=== PATIENT | female | born 1990 | race Caucasian/White ===

== ENCOUNTER 2017-08-04 18:45 | Emergency (ER) | payer OTHER ==
[2017-08-04 18:51] VITALS: BP 118/96; PULSE 125; BMI 29.9
[2017-08-04] MEDS ORDERED: IBUPROFEN 400 MG TABLET (FP) PO ONE (18:51)
--- NOTE | 2017-08-04 18:52 | PDOC ---
Rapid Medical Evaluation Time Seen by Provider: 08/04/17 18:48 Medical Evaluation: Allergies Allergy/AdvReac Type Severity Reaction Status Date / Time No Known Allergies Allergy Verified 08/04/17 18:48 08/04/17 18:48 I have performed a brief in-person evaluation of this patient. The patient presents with a chief complaint of: fever, abdominal pain, pelvic pain "cramping", vomited once today, body/headaches, last tylenol at 10 am Pertinent physical exam findings: temp 102.1F, tachy 125 I have ordered the following: labs, urine, Motrin The patient will proceed to the ED for further evaluation. Discharge Disposition - Diagnosis Abdominal pain - Referrals - Patient Instructions - Post Discharge Activity
[2017-08-04 19:14] LABS: BASO % 0.4 % (0-2.0); HEMATOCRIT 38.4 % (32.4-45.2); HEMOGLOBIN 12.8 GM/dL (10.7-15.3); LYMPH % 2.7 % (8-40); MCH 30.5 pg (25.7-33.7); MCHC 33.4 g/dl (32.0-36.0); MEAN CELL VOLUME 91.4 fl (80-96); MEAN PLT VOLUME 8.7 fl (7.5-11.1); NEUT % 91.9 % (42.8-82.8); PLATELET COUNT 159 K/MM3 (134-434); RDW 12.3 % (11.6-15.6); WHITE BLOOD COUNT 15.1 K/mm3 (4.0-10.0)
[2017-08-04 19:48] LABS: ALBUMIN 4.1 g/dl (3.4-5.0); ALK PHOS 73 U/L (45-117); ANION GAP 9 (8-16); BILIRUBIN,TOTAL 0.4 mg/dL (0.2-1.0); BLOOD UREA NITROGEN 11 mg/dL (7-18); CALCIUM 8.5 mg/dL (8.5-10.1); CHLORIDE 102 mmol/L (98-107); CO2 25 mmol/L (21-32); CREATININE 0.7 mg/dL (0.55-1.02); GLUCOSE,RANDOM 108 mg/dL (74-106); POTASSIUM 3.4 mmol/L (3.5-5.1); SGOT/AST 7 U/L (15-37); SGPT/ALT 21 U/L (12-78); SODIUM 136 mmol/L (136-145); TOT PROT 7.1 g/dl (6.4-8.2)
[2017-08-04 20:08] LABS: HCG,QUALITATIVE URINE NEGATIVE
[2017-08-04 20:09] LABS: URINE APPEARANCE CLEAR; URINE BILIRUBIN NEGATIVE (NEGATIVE); URINE BLOOD NEGATIVE (NEGATIVE); URINE COLOR LTYELLOW; URINE GLUCOSE (UA) NEGATIVE (NEGATIVE); URINE KETONE TRACE (NEGATIVE); URINE LEUK ESTERASE NEGATIVE (NEGATIVE); URINE NITRITE NEGATIVE (NEGATIVE); URINE PROTEIN NEGATIVE (NEGATIVE); URINE UROBILINOGEN NEGATIVE mg/dL (0.2-1.0)
[2017-08-04] MEDS ORDERED: PENICILLIN G BENZATHINE 1,200,000 UNIT/2 ML PFS IM ONE (20:51)
[2017-08-04] MEDS ORDERED: ACETAMINOPHEN 325 MG TABLET (FP) PO ONE (20:51)
[2017-08-04] MEDS ORDERED: PENICILLIN G BENZATHINE 2,400,000 UNIT/4 ML PFS ONE (20:53)
[2017-08-04] MEDS ORDERED: ACETAMINOPHEN 325 MG TABLET (FP) ONE ×2 (20:53→20:57)
--- NOTE | 2017-08-04 20:57 | PDOC ---
History of Present Illness - General Chief Complaint: Cold Symptoms Stated Complaint: COLD SYMPTOMS Time Seen by Provider: 08/04/17 18:48 Past History - Past Medical History Allergies/Adverse Reactions: Allergies Allergy/AdvReac Type Severity Reaction Status Date / Time No Known Allergies Allergy Verified 08/04/17 18:48 Home Medications: Ambulatory Orders No Home Medications 0 dose .ROUTE UTDICT 12/13/12 Ondansetron [Zofran Odt -] 4 mg SL TID #10 od.tablet 08/04/17 Oseltamivir Phosphate [Tamiflu] 75 mg PO BID #10 capsule 08/04/17 COPD: No - Immunization History Immunization Up to Date: Yes - Suicide/Smoking/Psychosocial Hx Smoking Status: No Smoking History: Never smoked Have you smoked in the past 12 months: No Number of Cigarettes Smoked Daily: 0 Information on smoking cessation initiated: No Hx Alcohol Use: No Drug/Substance Use Hx: No Substance Use Type: None *Physical Exam - Vital Signs Last Vital Signs Temp Pulse Resp BP Pulse Ox 102.1 F H 125 H 18 118/96 100 08/04/17 18:49 08/04/17 18:49 08/04/17 18:49 08/04/17 18:49 08/04/17 18:49 ED Treatment Course - LABORATORY CBC & Chemistry Diagram: 08/04/17 18:55 08/04/17 18:55 - ADDITIONAL ORDERS Additional order review: Laboratory Results 08/04/17 08/04/17 08/04/17 20:00 18:55 18:55 Sodium 136 Potassium 3.4 L Chloride 102 Carbon Dioxide 25 Anion Gap 9 BUN 11 Creatinine 0.7 Creat Clearance w eGFR > 60 Random Glucose 108 H Calcium 8.5 Total Bilirubin 0.4 AST 7 L ALT 21 Alkaline Phosphatase 73 Total Protein 7.1 Albumin 4.1 Lipase 64 L Urine Color Ltyellow Urine Appearance Clear Urine pH 7.0 Ur Specific [place] 1.021 Urine Protein Negative Urine Glucose (UA) Negative Urine Ketones Trace H Urine Blood Negative Urine Nitrite Negative Urine Bilirubin Negative Urine Urobilinogen Negative Ur Leukocyte Esterase Negative Urine HCG, Qual Negative 08/04/17 18:55 RBC 4.20 MCV 91.4 MCHC 33.4 RDW 12.3 MPV 8.7 Neutrophils % 91.9 H Lymphocytes % 2.7 L Monocytes % 5.0 Eosinophils % 0.0 Basophils % 0.4 - Medications Given in the ED: ED Medications Discontinued Medications Generic Name Dose Route Start Last Admin Trade Name Edwina PRN Reason Stop Dose Admin Ibuprofen 400 mg 08/04/17 18:51 08/04/17 18:52 Motrin - PO 08/04/17 18:52 400 mg ONCE ONE Administration *DC/Admit/Observation/Transfer Diagnosis at time of Disposition: Flu-like symptoms Pharyngitis Qualifiers: Pharyngitis/tonsillitis etiology: unspecified etiology Qualified Code(s): J02.9 - Acute pharyngitis, unspecified - Discharge Dispostion Disposition: HOME Condition at time of disposition: Stable Admit: No - Referrals Referrals: Mague Mueller [Primary Care Provider] - - Patient Instructions Printed Discharge Instructions: DI for Influenza -- Adult, DI for Pharyngitis/ Tonsillopharyngitis -- Adult Additional Instructions: You most likely have the flu and strep throat. You were treated with Bicillin today. 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 Please take Tylenol and Motrin as needed for fevers. Drink plenty of fluids. Your prescribed Zofran as needed for nausea. He may take this medication every 8 hours. Please all with her primary care doctor in 1 week. Return to the emergency department if you have worsening fevers, difficulty breathing, shortness of breath, or unable to tolerate fluids, or have any changes in her symptoms. - Post Discharge Activity Forms/Work/School Notes: Back to Work
[2017-08-04 21:00] VITALS: TEMP 98.6
== END 2017-08-04 21:04 | disposition home or self-care (01) ==
LOC: JERFT 18:45
DX: J11.2 Influenza due to unidentified influenza virus with gastrointestinal manifestations (principal); J02.9 Acute pharyngitis, unspecified
CPT/HCPCS: 36415; 80053; 81003; 83690; 84703; 85025; 87086; 96372; 99281-25

== ENCOUNTER 2020-02-05 17:04 | Inpatient (IN) | payer OTHER ==
[2020-02-05 18:28] VITALS: BMI 40.7
[2020-02-05] MEDS ORDERED: ELECTROLYTE-148 SOLN 500 ML IV ONE (18:40)
[2020-02-05] MEDS ORDERED: AMPICILLIN - 2 GM in SODIUM CHLORIDE 100 ML IVPB ONE (18:42)
[2020-02-05] MEDS ORDERED: DINOPROSTONE 10 MG VAGINAL SUPPOSITORY VG ONE (18:46)
--- NOTE | 2020-02-05 18:46 | HP ---
Past Medical History - Primary Care Physician PCP:: Joanna Carey - Admission History Source: Patient Limitations to Obtaining History: No Limitations - Past Medical History ...: 3 ...Para: 2 ...Term: 2 ...: 0 ...Spon : 0 ...Induced : 0 ...Living Children: 2 ...Multiple Gestation: 0 ...LMP: 05/02/19 ... Weeks Gestation by Dates: 39.6 ...EDC by Dates: 02/06/20 - Past Surgical History Past Surgical History: Yes: None Hx Myomectomy: No Hx Transabdominal Cerclage: No - Smoking History Smoking history: Never smoked Have you smoked in the past 12 months: No Aproximately how many cigarettes per day: 0 - Alcohol/Substance Use Hx Alcohol Use: No - Social History Usual Living Arrangement: Yes: With Spouse History of Recent Travel: No Home Medications - Allergies Allergies/Adverse Reactions: Allergies Allergy/AdvReac Type Severity Reaction Status Date / Time No Known Allergies Allergy Verified 02/05/20 18:16 - Home Medications Home Medications: Ambulatory Orders Vitamins (Sjr) - 1 tab PO DAILY 02/05/20 Review of Systems - Review of Systems Constitutional: reports: No Symptoms Eyes: reports: No Symptoms HENT: reports: No Symptoms Neck: reports: No Symptoms Cardiovascular: reports: No Symptoms Respiratory: reports: No Symptoms Gastrointestinal: reports: No Symptoms Genitourinary: reports: Vaginal Bleeding (bloody show) Breasts: reports: No Symptoms Reported Musculoskeletal: reports: No Symptoms Integumentary: reports: No Symptoms Neurological: reports: No Symptoms Endocrine: reports: No Symptoms Hematology/Lymphatic: reports: No Symptoms Psychiatric: reports: No Symptoms Physical Exam - Maternity Constitutional: Yes: Well Nourished, No Distress - Abdominal Exam/OB Number of Fetuses: Single Presentation: Vertex Contractions: Yes Regularity: Irregular Category: I - Vaginal Exam/OB Speculum Exam: No Dilatation (cm): 2 Effacement (%): long Amniotic Membrane Status: Intact Presentation: Vertex/Position Station: -1 - Physical Exam Musculoskeletal: Yes: WNL Extremities: Yes: WNL Psychiatric: Yes: WNL, Alert, Oriented Hemorrhage Risk Assessment - Risk Factors Risk Score: 0 Risk Level: Low Risk Problem List - Problems (1) 39 weeks gestation of Code(s): Z3A.39 - 39 WEEKS GESTATION OF (2) First stage of labor established Code(s): VVL4784 - Assessment/Plan IUP at 39.6 week early labor cat 1 cervdil placed Plan aubree cervidil
[2020-02-05 20:20] LABS: BASO % 0.2 % (0-2.0); EOS % 0.4 % (0-4.5); HEMATOCRIT 32.5 % (32.4-45.2); HEMOGLOBIN 10.8 GM/dL (10.7-15.3); LYMPH % 10.8 % (8-40); MCH 30.8 pg (25.7-33.7); MCHC 33.1 g/dl (32.0-36.0); MEAN CELL VOLUME 93.1 fl (80-96); MEAN PLT VOLUME 9.3 fl (7.5-11.1); MONO % 5.7 % (3.8-10.2); NEUT % 82.9 % (42.8-82.8); PLATELET COUNT 192 K/MM3 (134-434); RBC 3.49 M/mm3 (3.60-5.2); RDW 14.3 % (11.6-15.6); WHITE BLOOD COUNT 9.8 K/mm3 (4.0-10.0)
[2020-02-05] MEDS: ELECTROLYTE-148 SOLN 1,000 ML IV SCH (20:30)
[2020-02-05 20:33] LABS: BLOOD UREA NITROGEN 6.8 mg/dL (7-18); CALCIUM 8.6 mg/dL (8.5-10.1); CREATININE 0.6 mg/dL (0.55-1.3); POTASSIUM 3.9 mmol/L (3.5-5.1)
[2020-02-05 20:34] LABS: INR 0.97 (0.83-1.09); PROTHROMBIN TIME (PATIENT) 11.4 SEC (9.7-13.0)
[2020-02-05 20:37] LABS: ACTIVATED PTT 25.8 SECONDS (25.2-36.5)
[2020-02-06] MEDS: ELECTROLYTE-148 SOLN 1,000 ML IV SCH (04:17)
[2020-02-06] MEDS ORDERED: PROMETHAZINE HCL 25 MG/1 ML VIAL IVPB ONE (05:15)
[2020-02-06] MEDS ORDERED: BUTORPHANOL TARTRATE 2 MG/ML VIAL IVPB ONE (05:15)
[2020-02-06] MEDS ORDERED: AMPICILLIN SODIUM 2 GM VIAL ONE (05:20)
[2020-02-06] MEDS ORDERED: BUTORPHANOL TARTRATE 2 MG/ML VIAL ONE (05:21)
[2020-02-06] MEDS ORDERED: PROMETHAZINE HCL 25 MG/1 ML VIAL ONE (05:21)
[2020-02-06] MEDS ORDERED: OXYTOCIN 30 UNITS in 0.9% NS 30 UNIT/500 ML INFUS.BAG IVPB ONE (07:41)
[2020-02-06] MEDS ORDERED: AMPICILLIN SODIUM 1 GM VIAL ONE ×3 (07:41→17:55)
[2020-02-06] MEDS ORDERED: OXYTOCIN 20 UNITS in 0.9% NS 20 UNIT/1,000 ML INFUS.BAG IV ONE ×2 (07:41→14:39)
--- NOTE | 2020-02-06 10:22 | PN ---
Ante-Partal Exam - Subjective Vital Signs: Vital Signs Temperature 98.5 F 02/06/20 09:00 Pulse Rate 91 H 02/06/20 09:00 Respiratory Rate 18 02/06/20 09:00 Blood Pressure 127/72 02/06/20 09:00 O2 Sat by Pulse Oximetry (%) Bleeding: No Headache: No Visual changes: No Right upper quadrant pain: No - Contractions Contractions: Yes - Exam during Labor Variability: Moderate Category: I Monitor Decelerations: None Exam: Vaginal - Intrapartum Hemorrhage Risk Risk Score: 0 Risk Level: Low Risk - Assessment/Plan Assessment/Plan: post dates induction Cat 1 post cervidil Plan Pit aug
[2020-02-06] MEDS ORDERED: OXYTOCIN 30 UNITS in 0.9% NS 30 UNIT/500 ML INFUS.BAG IVPB SCH (10:30)
[2020-02-06] MEDS: AMPICILLIN - 1 GM in SODIUM CHLORIDE 100 ML IVPB SCH ×3 (10:45→18:10)
[2020-02-06] MEDS ORDERED: PCA PUMP NR ONE ×2 (12:09→20:53)
[2020-02-06] MEDS ORDERED: FENTANYL/BUPIVACAINE/NS/PF - PCEA - 50 ML DISP.SYRIN EP ONE ×2 (12:09→16:39)
--- NOTE | 2020-02-06 12:20 | PN ---
Ante-Partal Exam - Subjective Subjective: Pt doing well but with pain desires epidural Vital Signs: Vital Signs Temperature 98.4 F 02/06/20 11:00 Pulse Rate 89 02/06/20 11:00 Respiratory Rate 20 02/06/20 11:00 Blood Pressure 138/81 02/06/20 11:00 O2 Sat by Pulse Oximetry (%) Bleeding: No Headache: No Visual changes: No Right upper quadrant pain: No - Contractions Contractions: Yes Monitor Mode: External - Exam during Labor Variability: Moderate Monitor Decelerations: None Exam: Vaginal Dilatation (cm): 3 Effacement (%): 60 Amniotic Membrane Status: Ruptured Amniotic Fluid: Clear Presentation: Vertex Station: -3 - Intrapartum Hemorrhage Risk Risk Score: 0 Risk Level: Low Risk - Assessment/Plan Assessment/Plan: iup at 40 week srom cat 1 active labor plan epidural
[2020-02-06] MEDS ORDERED: BUPIVACAINE HCL/PF 0.25% (2.5MG/ML) 10 ML VIAL ONE (16:43)
[2020-02-06] MEDS ORDERED: NALOXONE HCL 0.4 MG/ML VIAL IVPUSH PRN (16:44)
[2020-02-06] MEDS ORDERED: FENTANYL/BUPIVACAINE/NS/PF - PCEA - 50 ML DISP.SYRIN EP SCH (16:45)
[2020-02-06] MEDS ORDERED: LIDO 2%/EPI 1:200000 PRESRVFRE (20 ML SDVIAL) ONE ×3 (19:07→22:17)
--- NOTE | 2020-02-06 21:21 | PN ---
Ante-Partal Exam - Subjective Subjective: Pt with anterior lip x 3 hours Vital Signs: Vital Signs Temperature 99.6 F 02/06/20 17:00 Pulse Rate 136 H 02/06/20 20:00 Respiratory Rate 20 02/06/20 20:00 Blood Pressure 158/64 02/06/20 20:00 O2 Sat by Pulse Oximetry (%) 127 H 02/06/20 19:15 Bleeding: No Headache: No Visual changes: No Right upper quadrant pain: No - Contractions Contractions: Yes Regularity: Regular Monitor Mode: External - Exam during Labor Variability: Moderate Category: I Monitor Accelerations: Present Monitor Decelerations: None Exam: Vaginal Dilatation (cm): 9 Effacement (%): 80 Amniotic Membrane Status: Ruptured Presentation: Vertex - Intrapartum Hemorrhage Risk Risk Score: 0 Risk Level: Low Risk - Assessment/Plan Assessment/Plan: Failure to progress Plan Section
[2020-02-06] MEDS ORDERED: ELECTROLYTE-148 SOLN 500 ML IV ONE ×2 (21:30→22:00)
[2020-02-06] MEDS ORDERED: CITRIC ACID/SODIUM CITRATE 30 ML UNIT-DOSE CUP PO ONE (21:30)
[2020-02-06] MEDS ORDERED: IBUPROFEN 800 MG/8 ML IJ IVPB PRN (21:33)
[2020-02-06] MEDS ORDERED: WITCH HAZEL 50% (TUCKS) 40 PAD/JAR PAD TP PRN (21:33)
[2020-02-06] MEDS ORDERED: BENZOCAINE 20% 57 GM BOTTLE TP PRN (21:33)
[2020-02-06] MEDS ORDERED: diphenhydrAMINE HCL 25 MG CAPSULE (FP) PO PRN (21:33)
[2020-02-06] MEDS ORDERED: BENZOCAINE 28 GM HEMORRHOIDAL OINTMENT PR PRN (21:33)
[2020-02-06] MEDS ORDERED: METHYLERGONOVINE MALEATE 0.2 MG/1 ML AMP IM PRN (21:33)
[2020-02-06] MEDS ORDERED: ceFAZolin SODIUM 1 GM VIAL ONE (22:14)
[2020-02-06] MEDS ORDERED: SODIUM BICARBONATE 8.4% 50 MEQ/50 ML VIAL ONE (22:18)
[2020-02-06] MEDS ORDERED: OXYTOCIN 10 UNITS/ML VIAL ONE (22:27)
[2020-02-06] MEDS ORDERED: morphine SULFATE/PF 0.5 MG/ML (2cc Syringe - QUVA) ONE ×3 (22:58)
[2020-02-06] MEDS: OXYTOCIN 20 UNITS in 0.9% NS 20 UNIT/1,000 ML INFUS.BAG IV SCH (23:30)
[2020-02-06 23:32] LABS: CORD pH 7.226 (7.14-7.44)
[2020-02-06 23:33] LABS: CORD BASE EXCESS -6.9 mmol/L (0-2); CORD HCO3 21.3 mmHg (20-29); CORD PCO2 52.6 mmHg (30-78)
[2020-02-06 23:33] LABS: CORD HCO3 21.9 mmHg (20-29); CORD PCO2 57.3 mmHg (30-78); CORD pH 7.201 (7.14-7.44)
[2020-02-07] MEDS: OXYTOCIN 20 UNITS in 0.9% NS 20 UNIT/1,000 ML INFUS.BAG IV SCH ×2 (05:12→22:36)
--- NOTE | 2020-02-07 07:01 | PN ---
Post Progress Note - Subjective Subjective: 29 yo Para 3 status post primary seen and evaluated. She's lying comfortably in bed. Post Day: 1 Type of Delivery: Primary C/S Vital Signs: Vital Signs Temperature 98.7 F 02/07/20 05:00 Pulse Rate 105 H 02/07/20 05:00 Respiratory Rate 18 02/07/20 06:00 Blood Pressure 134/63 02/07/20 05:00 O2 Sat by Pulse Oximetry (%) 97 02/06/20 23:50 Breast Exam: Yes: Soft Incision: Yes: Dressing dry and intact Abdomen/GI: Yes: Abdomen soft Lochia: Yes: Rubra Lochia, amount: Small Extremities: Yes: Calves non-tender Activity: Other (Lying in bed) - Labs Labs: CBC WBC 9.8 K/mm3 (4.0-10.0) 02/05/20 18:50 RBC 3.49 M/mm3 (3.60-5.2) L 02/05/20 18:50 Hgb 10.8 GM/dL (10.7-15.3) 02/05/20 18:50 Hct 32.5 % (32.4-45.2) 02/05/20 18:50 MCV 93.1 fl (80-96) 02/05/20 18:50 MCH 30.8 pg (25.7-33.7) 02/05/20 18:50 MCHC 33.1 g/dl (32.0-36.0) 02/05/20 18:50 RDW 14.3 % (11.6-15.6) 02/05/20 18:50 Plt Count 192 K/MM3 (134-434) 02/05/20 18:50 MPV 9.3 fl (7.5-11.1) 02/05/20 18:50 Absolute Neuts (auto) 8.1 K/mm3 (1.5-8.0) H 02/05/20 18:50 Neutrophils % 82.9 % (42.8-82.8) H 02/05/20 18:50 Lymphocytes % 10.8 % (8-40) D 02/05/20 18:50 Monocytes % 5.7 % (3.8-10.2) 02/05/20 18:50 Eosinophils % 0.4 % (0-4.5) 02/05/20 18:50 Basophils % 0.2 % (0-2.0) 02/05/20 18:50 Nucleated RBC % 0 % (0-0) 02/05/20 18:50 Problem List - Problems (1) Status post primary low transverse section Code(s): Z98.891 - HISTORY OF UTERINE SCAR FROM PREVIOUS SURGERY Assessment/Plan Status post primary Ambulation Analgesia as needed Continue routine post op care
[2020-02-07 07:59] LABS: HEMATOCRIT 26.8 % (32.4-45.2); HEMOGLOBIN 8.6 GM/dL (10.7-15.3); MCHC 32.3 g/dl (32.0-36.0); MEAN CELL VOLUME 93.1 fl (80-96); MEAN PLT VOLUME 8.9 fl (7.5-11.1); PLATELET COUNT 172 K/MM3 (134-434); RBC 2.88 M/mm3 (3.60-5.2); RDW 15.1 % (11.6-15.6); WHITE BLOOD COUNT 15.3 K/mm3 (4.0-10.0)
[2020-02-07] MEDS ORDERED: oxyCODONE HCL 5 MG TABLET PO PRN ×2 (10:00)
[2020-02-07] MEDS ORDERED: HYDROmorphone HCL 2 MG TABLET PO PRN (10:00)
[2020-02-07] MEDS: IBUPROFEN 600 MG TABLET (FP) PO PRN ×3 (10:21→22:33)
[2020-02-07] MEDS: ACETAMINOPHEN 325 MG TABLET (FP) PO PRN ×3 (10:21→22:34)
[2020-02-07] MEDS: SIMETHICONE 80 MG TAB.CHEW (FP) PO PRN ×3 (10:22→22:33)
--- NOTE | 2020-02-07 11:29 | PN ---
Progress Note (short form) - Note Progress Note: Anesthesiology Post-op POD#1 s/p C/S Pt. doing well. No h/a, no residual anesthesia, VSS. 29 y.o. woman with stable post-operative course. Continue management per primary team.
--- NOTE | 2020-02-07 15:43 | OP ---
Operative Note - Note: Operative Date: 02/06/20 Pre-Operative Diagnosis: failure to progress. iup at 40 week Operation: Primary section Findings: Live male Post-Operative Diagnosis: Same as Pre-op Surgeon: Joanna Carey Senior Patrol Agent: Laurent Regalado Anesthesia: Epidural Estimated Blood Loss (mls): 600 Operative Report Dictated: Yes
[2020-02-07] MEDS ORDERED: BISACODYL 10 MG SUPP.RECT PR PRN (21:34)
[2020-02-08] MEDS: AMPICILLIN - 1 GM in SODIUM CHLORIDE 100 ML IVPB SCH ×2 (00:14→00:15)
[2020-02-08] MEDS: IBUPROFEN 600 MG TABLET (FP) PO PRN ×3 (06:44→20:38)
[2020-02-08] MEDS: ACETAMINOPHEN 325 MG TABLET (FP) PO PRN ×3 (06:46→20:37)
[2020-02-08] MEDS: SIMETHICONE 80 MG TAB.CHEW (FP) PO PRN ×2 (06:46→20:37)
--- NOTE | 2020-02-08 08:10 | OP ---
DATE OF OPERATION: 02/06/2020 PREOPERATIVE DIAGNOSIS: Failure to progress, intrauterine at 40 weeks. OPERATION: Primary low transverse section. POSTOPERATIVE DIAGNOSIS: Failure to progress, intrauterine at 40 weeks and live male . SURGEON: Rigo Carey MD EXECUTIVE PRODUCER PROMOS: LINDSEY Schaffer ANESTHESIA: Epidural. ANESTHESIOLOGIST: ANN Jacinto ESTIMATED BLOOD LOSS: 600 mL PROCEDURE: Patient was taken to the operating room, placed in the supine position, prepped and draped in the usual sterile fashion. A timeout was performed in accordance with hospital regulation. Pfannenstiel skin incision was made with a scalpel. Cautery was then used to go through the layers of the abdominal wall to the level of the fascia. Fascia was cut in the midline. Cautery was then used to open the fascia in smiling fashion. Basilio was then used to bluntly and sharply dissect the rectus muscle off the fascia. Muscle was split in the midline. Peritoneal cavity was then entered and carried upward and downward. Bladder retractor was then placed. Scalpel was then used to make a low transverse uterine incision. Incision was carried up through using bandage scissors. A live male was delivered in the OP position. Nose and mouth suction performed. Shoulders were delivered without difficulty. Cord was clamped and cut. Cord blood obtained. Cord pH obtained. Infant was handed to cabin man. Placenta was spontaneously removed from the uterus. Uterus exteriorized and cleaned with clean lap pads. Uterine incision was then closed using 0 Biosyn suture, first layer continuous interlocking, second layer imbricating the first layer. Hemostasis was achieved. Tubes and ovaries were noted to be normal. Uterus interiorized. Abdominal cavity was cleaned with clean lap pads. Abdominal sweep done. Peritoneal cavity was then closed using 0 Biosyn suture first layer in a continuous stitch. Muscle was approximated in the midline using 0 Biosyn suture. Fascia was then closed using 0 Vicryl suture in 2 parts. Skin was then closed using 3-0 Vicryl in subcuticular fashion. Wound was washed and dressed. Patient had tolerated procedure well. Estimated blood loss was 600 mL. RIGO CAREY M.D. SANTOSH/[id number]
--- NOTE | 2020-02-08 14:38 | PATH ---
Surgical Pathology Report Patient Name: RYLAN SERRANO Med. Rec. #: [id number] /Age/Gender: 1990 (Age: 29) / F Account: [id number] Location: [facility] OBS/GAS APPLIANCE REPAIRER Taken: 02/06/2020 Received: 02/07/2020 Reported: 02/08/2020 Physicians: Joanna Carey M.D. Specimen(s) Received PLACENTA Clinical History , failure to progress Final Diagnosis PLACENTA: THIRD TRIMESTER PLACENTA WITH FOCAL INCREASED PERIVILLOUS FIBRIN DEPOSITION. TRIVASCULAR CORD. MEMBRANES WITH NO DIAGNOSTIC ABNORMALITIES. Electronically Signed Rayo Smith M.D. Gross Description The specimen is received fresh labeled placenta and is a 640 gram, 21.0 x 16.5 x 2.8 cm. placenta with attached membranes and umbilical cord. The attached membranes are carpenter, translucent with focal opacities and insert marginally. The umbilical cord measures 18 cm. in length and averages 1.3 cm. in diameter. The cord inserts eccentrically, 5 cm. to the nearest margin. No true knots or strictures are identified. Cut surface of the umbilical cord reveals 3 vessels. The surface is jin blue with moderate fibrin deposition and appropriate caliber vessels. The maternal surface is red-brown with focal defects. Sectioning reveals red-brown, spongy parenchyma. No lesions are identified. Behavioral Health Tech sections are submitted in three cassettes as follows: 1- membrane rolls and umbilical cord; 2-3- full thickness sections of placenta. /02/07/2020 saudi02/07/2020
[2020-02-08] MEDS ORDERED: SENNOSIDES/DOCUSATE COMBO (SENNA PLUS) TABLET (UD) PO PRN (22:00)
--- NOTE | 2020-02-08 23:05 | PN ---
Progress Note (SOAP) - Subjective Chief Complaint: Pt doing well - Current Medications Current Medications: Active Medications Acetaminophen (Tylenol -) 650 mg PO Q4H PRN PRN Reason: FEVER Last Admin: 02/08/20 20:37 Dose: 650 mg Documented by: Benzocaine (Americaine 20% [place] -) 1 spray TP PRN PRN PRN Reason: Pain - Topical Benzocaine (Americaine Ointment -) [address] PRN PRN PRN Reason: Pain - Topical Bisacodyl (Dulcolax Suppository -) [address] PRN PRN PRN Reason: CONSTIPATION Diphenhydramine HCl (Benadryl -) 25 mg PO Q6H PRN PRN Reason: FOR ITCHING Ibuprofen (Motrin -) 600 mg PO Q4H PRN PRN Reason: FEVER Last Admin: 02/08/20 20:38 Dose: 600 mg Documented by: Ibuprofen (Caldolor Injection -) 800 mg IVPB Q6H PRN PRN Reason: Fever - If PO not effective. Last Admin: 02/07/20 05:12 Dose: 800 mg Documented by: Methylergonovine Maleate (Methergine Injection -) 0.2 mg IM Q4H PRN PRN Reason: EXCESSIVE BLEEDING Naloxone HCl (Narcan -) 0.4 mg IVPUSH PRN PRN PRN Reason: Sedation Oxycodone HCl (Roxicodone -) 5 mg PO Q4H PRN PRN Reason: PAIN LEVEL 1 - 3 Oxycodone HCl (Roxicodone -) 10 mg PO Q4H PRN PRN Reason: PAIN LEVEL 4 - 6 Senna/Docusate Sodium (Pericolace -) 2 tablet PO HS PRN PRN Reason: CONSTIPATION Simethicone (Mylicon -) 80 mg PO Q4H PRN PRN Reason: GAS Last Admin: 02/08/20 20:37 Dose: 80 mg Documented by: Rhett Rubio/Glycerin (Tucks Pads -) 1 pad TP PRN PRN PRN Reason: Pain - Topical - Objective Vital Signs: Vital Signs Temperature 97.8 F 02/08/20 20:39 Pulse Rate 96 H 02/08/20 20:39 Respiratory Rate 20 02/08/20 20:39 Blood Pressure 135/84 02/08/20 20:39 O2 Sat by Pulse Oximetry (%) 97 02/06/20 23:50 Constitutional: Yes: Well Nourished, No Distress Neck: Yes: WNL ....Post : Yes: Uterus firm, Uterus non-tender Musculoskeletal: Yes: WNL Extremities: Yes: WNL Peripheral Pulses WNL: No Wound/Incision: Yes: Clean/Dry, Well Approximated, Steri Strips, Open to air Psychiatric: Yes: WNL, Alert, Oriented Labs Lab Results: CBCD WBC 15.3 K/mm3 (4.0-10.0) H 02/07/20 07:30 RBC 2.88 M/mm3 (3.60-5.2) L 02/07/20 07:30 Hgb 8.6 GM/dL (10.7-15.3) L 02/07/20 07:30 Hct 26.8 % (32.4-45.2) L D 02/07/20 07:30 MCV 93.1 fl (80-96) 02/07/20 07:30 MCHC 32.3 g/dl (32.0-36.0) 02/07/20 07:30 RDW 15.1 % (11.6-15.6) 02/07/20 07:30 Plt Count 172 K/MM3 (134-434) 02/07/20 07:30 MPV 8.9 fl (7.5-11.1) 02/07/20 07:30 CMP Sodium 141 mmol/L (136-145) 02/05/20 18:50 Potassium 3.9 mmol/L (3.5-5.1) 02/05/20 18:50 Chloride 111 mmol/L (98-107) H 02/05/20 18:50 Carbon Dioxide 22 mmol/L (21-32) 02/05/20 18:50 Anion Gap 8 MMOL/L (8-16) 02/05/20 18:50 BUN 6.8 mg/dL (7-18) L 02/05/20 18:50 Creatinine 0.6 mg/dL (0.55-1.3) 02/05/20 18:50 Random Glucose 68 mg/dL (74-106) L 02/05/20 18:50 Calcium 8.6 mg/dL (8.5-10.1) 02/05/20 18:50 Problem List - Problems (1) 39 weeks gestation of Code(s): Z3A.39 - 39 WEEKS GESTATION OF (2) First stage of labor established Code(s): AFF8305 - Assessment/Plan Sp CS POD2 Plan continue present managementl
[2020-02-09] MEDS: ACETAMINOPHEN 325 MG TABLET (FP) PO PRN (04:11)
[2020-02-09] MEDS: IBUPROFEN 600 MG TABLET (FP) PO PRN (04:11)
[2020-02-09 09:27] LABS: HEMATOCRIT 25.8 % (32.4-45.2); HEMOGLOBIN 8.4 GM/dL (10.7-15.3); MCH 30.4 pg (25.7-33.7); MCHC 32.6 g/dl (32.0-36.0); MEAN CELL VOLUME 93.3 fl (80-96); MEAN PLT VOLUME 8.2 fl (7.5-11.1); PLATELET COUNT 186 K/MM3 (134-434); RBC 2.77 M/mm3 (3.60-5.2); RDW 15.2 % (11.6-15.6); WHITE BLOOD COUNT 9.1 K/mm3 (4.0-10.0)
[2020-02-09 14:47] VITALS: BP 140/88; PULSE 86; TEMP 98
== END 2020-02-09 11:45 | disposition home or self-care (01) | DRG 540 ==
LOC: JLDR 17:04 → J3W 02-07 03:45
PROVIDERS: ADMIT Obstetrics & Gynecology; ATTEND Obstetrics & Gynecology
PROC: 3E0P7VZ Introduction of Hormone into Female Reproductive, Via Natural or Artificial Opening (ICD-10-PCS; principal; 2020-02-05)
PROC: 10D00Z1 Extraction of Products of Conception, Low, Open Approach (ICD-10-PCS; 2020-02-06)
DX: O48.0 Post-term pregnancy (principal); O62.8 Other abnormalities of forces of labor; O99.824 Streptococcus B carrier state complicating childbirth; Z3A.40 40 weeks gestation of pregnancy; Z37.0 Single live birth
CPT/HCPCS: 36415; 36600; 80048; 82803; 85025; 85027; 85610; 85730; 86780; 86850; 86900; 86901; 87389; 88307-TC

== ENCOUNTER 2023-09-24 16:01 | Emergency (ER) | payer OTHER ==
[2023-09-24 16:23] VITALS: BP 131/72; RESP 16; BMI 30.8
[2023-09-24] MEDS ORDERED: IBUPROFEN 600 MG TABLET (FP) PO ONE (18:13)
[2023-09-24] MEDS: IBUPROFEN 600 MG TABLET (FP) PO ONE (18:17)
[2023-09-24 18:19] VITALS: PULSE 86; TEMP 98.2
== END 2023-09-24 18:19 | disposition home or self-care (01) ==
LOC: JER 16:01
DX: S80.12XA Contusion of left lower leg, initial encounter (principal); X58.XXXA Exposure to other specified factors, initial encounter
CPT/HCPCS: 93971-TC; 99284-25